=== PATIENT | female | born 1995 | race African-American/Black ===

== ENCOUNTER 2017-12-07 04:11 | Emergency (ER) | payer SELFPAY ==
[~2017-12-07] VITALS: Ht 162.6 cm; Wt 85.0 kg
[~2017-12-07 04:11] MED LIST: BACT2OIN TOP; BACT800T5 PO; DICY1TAB26 PO; METF-324 PO; ZOFR4TAB3 SL
[2017-12-07 04:13] VITALS: BP 145/92; PULSE 110; RESP 16; TEMP 98.8; O2SAT 100
[2017-12-07] MEDS ORDERED: GLIP5TAB8 PO (04:30)
[2017-12-07] MEDS ORDERED: METF1000 PO (04:30)
--- NOTE | 2017-12-07 04:36 | PD ---
HPI Chief Complaint: Cold / Flu Symptoms Time Seen by Provider: 04:30 Travel History International Travel<30 days: No Contact w/Intl Traveler<30days: No Traveled to known affect area: No History of Present Illness HPI 22-year-old female presents to the emergency department by private transportation for complaint of myalgias arthralgias sore throat sinus congestion nasal congestion and reporting difficulty breathing through her nose. Patient states that when she lays down she has difficulty breathing through her nose. He should also notes that she has a sore throat. Patient has a history of asthma has used her inhaler to help breathing through her nose. Patient states this seems to help some but she still is concerned that she has a sore throat. Patient was diagnosed yesterday 12/06/17 with the flu virus and she was given a prescription for Tamiflu. Patient took a one-time dose of acetaminophen/Tylenol at 12 noon is taken no further antipyretics. Patient used her inhaler at midnight times one and has taken a one-time dose of Tamiflu. Patient denies any other concerns or complaints. Patient states she thinks her temperature is been elevated to 10 1F. Patient voices no other concerns or complaints. Patient denies . PFSH Past Medical History Narrative Medical Arthritis asthma diabetes no tobacco use nursing notes reviewed Arthritis: Yes Diabetes: Yes Patient Takes Glucophage: Yes Hypertension: Yes ?: Not : 0 Para: 0 Past Surgical History Surgical History: No Previous Surgery Social History Alcohol Use: No Tobacco Use: No Substance Use: No Allergies-Medications (Allergen,Severity, Reaction): Coded Allergies: No Known Allergies (Unverified Adverse Reaction, Unknown, 12/07/17) Reported Meds & Prescriptions Reported Meds & Active Scripts Active Reported Glipizide 5 Mg Tab 5 Mg PO BIDAC Take 30 minutes before a meal Metformin (Metformin HCl) 1,000 Mg Tab 1,000 Mg PO BIDPC Review of Systems Except as stated in HPI: all other systems reviewed are Neg General / Constitutional: Positive: Fever HENT: Positive: Sore Throat, Congestion Cardiovascular: No: Chest Pain or Discomfort Respiratory: Positive: Cough, No: Wheezing Gastrointestinal: No: Vomiting, Abdominal Pain Musculoskeletal: Positive: Myalgias, Arthralgias Skin: No Rash Neurologic: No: Weakness Psychiatric: No: Anxiety Hematologic/Lymphatic: No: Lymph Node Enlargement Physical Exam Narrative GENERAL: Well-developed well-nourished female in no acute distress no respiratory distress; no stridor no hoarseness. SKIN: Warm and dry. HEAD: Normocephalic. EYES: No scleral icterus. No injection or drainage. ENT: Mucous membranes moist airway is patent mild posterior pharyngeal erythema no exudative change or edema NECK: Supple, trachea midline. No JVD or lymphadenopathy. CARDIOVASCULAR: Increased Regular rate and rhythm without murmurs, gallops, or rubs. RESPIRATORY: Breath sounds equal bilaterally. No accessory muscle use. GASTROINTESTINAL: Abdomen soft, non-tender, nondistended. MUSCULOSKELETAL: No cyanosis, or edema. BACK: Nontender without obvious deformity. No CVA tenderness. Data Data Last Documented VS Vital Signs Date Time Temp Pulse Resp B/P (MAP) Pulse Ox O2 Delivery O2 Flow Rate FiO2 12/07/17 04:44 105 128/76 (93) 12/07/17 04:13 98.8 16 100 Room Air Orders Orders Group A Rapid Strep Screen (12/07/17 04:30) Strep Culture (Group A) (12/07/17 04:30) Ed Discharge Order (12/07/17 05:13) MDM Medical Decision Making Medical Screen Exam Complete: Yes Emergency Medical Condition: Yes Medical Record Reviewed: Yes Interpretation(s) rsa: negative Differential Diagnosis Influenza strep pharyngitis sinusitis pneumonia; No findings to support peritonsillar abscess or retropharyngeal abscess or epiglottitis Narrative Course Rapid strep antigen specimen collected \Rapid strep antigen is negative patient is stable for outpatient management and follow-up with her primary care provider Diagnosis Primary Impression: Influenza Referrals: Primary Care Physician call for appointment Patient Instructions: General Instructions Additional Instructions: Increase/encourage fluid hydration Monitor temperature every 4 hours with thermometer take as needed acetaminophen/ Tylenol every 4 hours for fever 100.4F or greater and/or may take ibuprofen/ Advil/Motrin 600 mg as often as every 6 hours up to a maximum dose of 800 mg every 8 hours for fever 100.4F or greater or for pain associated with inflammation Complete prescription of Tamiflu as provided 12/06/17 by your provider May use [id number] Afrin nasal decongestant spray per package directions for the next 2-3 days for symptom relief Return to the emergency department for any concerns or change in condition Disposition: 01 DISCHARGE HOME Condition: Stable Isabelle Schmid MD Dec 07, 2017 04:36
[2017-12-07 04:44] VITALS: BP 128/76; PULSE 105
== END 2017-12-07 05:43 | disposition home or self-care (01) ==
LOC: NEPC 04:11
DX: J11.1 Influenza due to unidentified influenza virus with other respiratory manifestations (principal); E11.9 Type 2 diabetes mellitus without complications; Z79.84 Long term (current) use of oral hypoglycemic drugs
CPT/HCPCS: 87081; 87880; 99283